=== PATIENT | female | born 1990 | race Caucasian/White ===

== ENCOUNTER → 2020-03-24 | Outpatient (CLI) | payer BC ==
--- NOTE | 2020-03-24 12:59 | RAD ---
AP and Lateral Views of the Chest 03/24/2020 12:00 AM Indication: Reason: SOA, (COVID+ SINCE JANUARY Comparison: Chest radiograph June 25, 2006 Findings: There is no focal consolidation or infiltrate identified. The cardiomediastinal silhouette is within normal limits. There is no evidence of pneumothorax or pleural effusion. No acute osseous abnormalities are identified. Impression: No evidence of acute cardiopulmonary process. Electronically signed by: Aaron Mari MD (03/24/2020 12:56 PM) [id number]
== END | disposition home or self-care (01) ==
LOC: RAD 12:35
PROVIDERS: ATTEND Physician Assistant Medical
DX: U07.1 COVID-19 (principal); R06.02 Shortness of breath
CPT/HCPCS: 71046

== ENCOUNTER 2020-06-14 19:56 | Emergency (ER) | payer BC ==
[~2020-06-14] VITALS: Ht 157.5 cm; Wt 86.0 kg
[2020-06-14 22:00] VITALS: BP 134/86
== END 2020-06-14 23:46 | disposition left against medical advice (07) ==
LOC: ER 19:56
DX: M54.5 Low back pain (principal); Z53.21 Procedure and treatment not carried out due to patient leaving prior to being seen by health care provider

== ENCOUNTER → 2020-07-09 | Outpatient (CLI) | payer BC ==
[2020-06-14 22:00] VITALS: BP 134/86
[~2020-07-09] MED LIST: DIME50TA10 PO; INSU100C4 SQ; INSU100V8 SQ; MULT-735 PO; OXYC1TAB19 PO
== END ==
LOC: LAB 14:50
PROVIDERS: ATTEND Surgery
DX: Z01.812 Encounter for preprocedural laboratory examination (principal); Z20.828 Contact with and (suspected) exposure to other viral communicable diseases; L05.91 Pilonidal cyst without abscess
CPT/HCPCS: U0003

== ENCOUNTER 2020-07-12 10:55 | Day surgery (SDC) | payer BC ==
[~2020-07-12] VITALS: Ht 157.5 cm; Wt 90.0 kg
[~2020-07-12 10:55] MED LIST changes: +BUPIVACAINE-EPI 0.5%-1:200000 MPF 30 ML VIAL. INJ ONE; +HYDROmorphone 2 MG/ML VIAL IV PRN; +INSULIN LISPRO 100 UNIT/ML 3ML VIAL for OP,RR ONLY. SQ PRN; +LIDOCAINE 1% PF 2 ML VIAL. ID PRN; +LIDOCAINE 2% PF 5 ML VIAL. ONE; +MORPHINE SULFATE 2 MG/ML VIAL. IV PRN; +ONDANSETRON PF 4 MG/2 ML VIAL. IV PRN; +PROCHLORPERAZINE 10 MG/2 ML VIAL. IV PRN; +PROPOFOL 10 MG/ML (20ML) VIAL. IV ONE; +ROCURONIUM 50 MG/5 ML VIAL. ONE; +fentaNYL PF VIAL 100 MCG/2 ML VIAL IV PRN; +fentaNYL PF VIAL 100 MCG/2 ML VIAL ONE
[2020-07-12] MEDS ORDERED: INSULIN LISPRO 100 UNIT/ML 3ML VIAL for OP,RR ONLY. SQ PRN (11:15)
[2020-07-12] MEDS: IV RINGERS,LACTATED 1000ML 1,000 ML IV SCH ×2 (11:44→14:56)
[2020-07-12] MEDS ORDERED: INSULIN LISPRO 100 UNIT/ML 3ML VIAL for OP,RR ONLY. SQ ONE (11:45)
--- NOTE | 2020-07-12 12:15 | EKG ---
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
[2020-07-12] MEDS ORDERED: DESFLURANE 31 TO 60 MINUTES IH ONE (13:58)
[2020-07-12] MEDS ORDERED: ONDANSETRON PF 4 MG/2 ML VIAL. ONE (13:58)
[2020-07-12] MEDS ORDERED: DEXAMETHASONE SOD PHOS 4 MG/ML VIAL ONE (13:58)
[2020-07-12] MEDS ORDERED: GLYCOPYRROLATE 1 MG/5 ML VIAL. ONE (14:29)
[2020-07-12] MEDS ORDERED: NEOSTIGMINE METHYLSULFATE 5 MG/5 ML SYRINGE. ONE (14:29)
[2020-07-12] MEDS ORDERED: oxyCODONE/APAP 7.5/325 1 TAB TABLET PO ONE ×2 (14:45)
--- NOTE | 2020-07-12 14:51 | PDOC4 ---
Operative Note Operative Note Operative Note: Preoperative Diagnosis: Pilonidal cyst Postoperative Diagnosis: Same Procedure: Excision of pilonidal cyst Surgeon: Jamie Anesthesia: General EBL: 25 mL Specimen: Pilonidal tissue to pathology Drains: None Complications: None Indication: The patient is a 30-year-old female who has had previous problems related to recurrent pilonidal cysts. Recently she had developed an infection in the area that required incision and drainage. She has continued to have significant pain and requests excision of the involved cyst. The risks of surgery were discussed which include bleeding, infection, recurrence, pain, wound healing problems, anesthetic risk, potential need for additional surgery procedure. She understands and would like to proceed. Description: The patient was taken to the operating room and placed supine in the operating table. General anesthesia was performed. She was then placed prone. The sacrococcygeal area was prepped with ChloraPrep and draped in a standard surgical manner. With a scalpel an elliptical incision was made around the involved tissue in the sacral region. Cautery dissection was used for excision and the location of the prior I&D. There was significant scar tissue from prior procedures. The dissection was taken all the way down to the sacral fascia. The specimen was fully excised and sent to pathology. Hemostasis was achieved with cautery. The wound was approximated with several deeper layers using interrupted 2-0 Vicryl. The skin was then closed with 4-0 Monocryl and a sterile dressing was applied. The patient tolerated the procedure well and sent to the recovery room in stable condition. At the end of the case all counts were correct. OC ARMAS MD Jul 12, 2020 14:51
[2020-07-12] MEDS: fentaNYL PF VIAL 100 MCG/2 ML VIAL IV PRN ×2 (14:54→15:05)
--- NOTE | 2020-07-12 14:54 | DISCH ---
DISCHARGE INSTRUCTIONS Condition on Discharge Condition on Discharge: Stable Activity After Discharge Activity Instructions for Disc: Other, see below (keep weight off of sacral area) Diet after Discharge Diet after Discharge: Regular Wound Incision Care Wound/Incision Care: Other, see below (Keep dressing clean and dry X 72 hours, may then remove and shower; reapply as needed; No baths or submersion in water until follow up) Follow-Up Follow up with: Dr Armas in 2 weeks in office, call for appointmetn [phone] OC ARMAS MD Jul 12, 2020 14:54
[2020-07-12 15:47] VITALS: BP 123/87
--- NOTE | 2020-07-14 22:06 | PATHOLOGY ---
[facility] Accession Number: [id number] . 01 Material submitted: . buttock - PILONIDAL CYST . 02 Diagnosis: "Pilonidal cyst", excision: - Skin and subcutaneous tissue with extensive dermal fibrosis, mild acute and chronic inflammation, focal fresh hemorrhage and reactive changes. (See comment) LBQ 07/14/2020 1521 Local . 02 Comment: The histologic findings are compatible with pilonidal cyst/sinus and/or scar tissue. Clinical correlation is recommended. (CLW/db; 07/14/2020) . 02 Electronically signed: . Ana Henley MD, Pathologist NPI- [id number] . 01 Gross description: . Received in formalin labeled "Jessica Clemens, pilonidal cyst" is an unoriented antunez white pigmented portion of skin measuring 4.3 x 1.9 cm and excised to a maximum depth of 3.9 cm. Located longitudinally is a well-healed scar measuring 3.4 cm in length. The surgical resection margin is inked black and the specimen is serially sectioned to reveal a antunez-white fibrous cut surface. Received is an unoriented lobular portion of fibrous tissue measuring 3.9 x 2.1 x 1.1 cm. The specimen is serially sectioned to reveal lobular, antunez-yellow cut surface. The section of the specimen is submitted in cassette A1.([facility]; 07/13/2020) GZA/GZA 07/13/2020 1835 Local . 02 Pathologist provided ICD-10: L90.5, L08.9, L05.91 . 02 CPT . 784960 Specimen Comment: A courtesy copy of this report has been sent to [phone], [phone] Specimen Comment: [id number] Specimen Comment: Report sent to / Performed at: [address] [facility] [address], [place] [id number] MD Parker Sheets MD Phone: [phone] Performed at: 02 [facility] [place] [address] [place], [place] [id number] MD Ibrahima Raymond MD Phone: [phone]
== END 2020-07-12 16:14 | disposition home or self-care (01) ==
LOC: SURG 10:55
PROVIDERS: ATTEND Surgery
DX: L05.91 Pilonidal cyst without abscess (principal); E66.9 Obesity, unspecified; E10.9 Type 1 diabetes mellitus without complications; F41.9 Anxiety disorder, unspecified; Z68.36 Body mass index [BMI] 36.0-36.9, adult; Z72.0 Tobacco use; Z79.899 Other long term (current) drug therapy; Z98.890 Other specified postprocedural states; Z72.89 Other problems related to lifestyle; Z82.49 Family history of ischemic heart disease and other diseases of the circulatory system
CPT/HCPCS: 11771; 81025; 82962; 93005; J0690; J1100; J1815; J2405; J2704; J2710; J3010; J3490